=== PATIENT | male | born 1955 | race Caucasian/White ===

== ENCOUNTER 2017-11-11 08:41 | Emergency (ER) | payer OTHER ==
[~2017-11-11] VITALS: Ht 182.9 cm; Wt 104.3 kg
--- NOTE | ~2017-11-11 | EKG ---
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1955 Requested By: Marylu Brown Order Number: [id number] MD: Alden Payan Measurements Intervals [place] Rate: 72 P: -16 SC: 185 QRS: -26 QRSD: 145 T: -20 QT: 424 QTc: 465 Interpretive Statements Sinus rhythm Right bundle branch block Inferior infarct, age indeterminate No previous ECG available for comparison Electronically Signed On 11-11-2017 14:12:19 CDT by Alden Payan [email or web address] <ELECTRONICALLY SIGNED> By: Alden Paayn MD, [facility] 11/11/17 1412 0934 0934 Alden Payan MD, [facility] /EPI
[~2017-11-11 08:41] MED LIST: AMLODIPINE BESY10 MG PO; BENZTROPINE ME0.5 MG PO; CLONAZEPAM 0.50.5 M1 PO; DEPAKOTE 250MG250 M1 PO; FLOMAX0.4 MG PO; HALOPERIDOL 1 MG1 MG PO; HYDROCODONE-AP1 EAC6 PO; LACTULOSE10 GM/152 PO; LEVEMIR100 UNIT/1 SQ; NORCO 5-325 TA1 EACH PO; NOVOLOG100 UNIT/1; PEPCID20 MG PO; PERCOCET 5-3251 EACH PO; PROPRANOLOL 1010 MG PO; SEROQUEL 50 MG50 MG PO; WELLBUTRIN SR150 MG PO
[2017-11-11] MEDS ORDERED: SYNTHROID50 MCG PO (08:46)
[2017-11-11] MEDS ORDERED: RISPERIDONE0.5 MG PO (08:47)
[2017-11-11] MEDS ORDERED: ARTIFICIAL TEA1 EACH OPHTHALMIC (08:48)
[2017-11-11 09:10] LABS: ABSOLUTE NEUTROPHILS 3.1 thou/uL (1.4-8.2); BASOPHILS 0.5 % (0.0-2.0); EOSINOPHILS 4.1 % (0.0-3.0); HEMATOCRIT 33.1 % (42.0-52.0); HEMOGLOBIN 11.3 gm/dL (14.0-18.0); LYMPHOCYTES 17.5 % (24.0-44.0); MCH 30.7 pg (26.0-34.0); MCHC 34.2 g/dL (28.0-37.0); MCV 89.9 fL (80.0-100.0); MONOCYTES 8.9 % (1.0-8.0); PLATELET COUNT 136 thou/uL (150-400); RBC 3.68 mil/uL (4.50-6.00); WBC 4.5 thou/uL (4.0-11.0)
[2017-11-11 09:14] LABS: ANION GAP 7 mmol/L (7-16); BUN 29 mg/dL (7-18); CHLORIDE 108 mmol/L (98-107); CO2 30 mmol/L (21-32); CREATININE 1.8 mg/dL (0.7-1.3); GLUCOSE 145 mg/dL (74-106); SODIUM 145 mmol/L (136-145)
[2017-11-11 09:22] LABS: TROPONIN-I <0.06 ng/mL (<0.06)
[2017-11-11] MEDS ORDERED: DOXYCYCLINE 10100 MG PO (11:18)
[2017-11-11 13:52] VITALS: BP 140/78
== END 2017-11-11 13:53 | disposition home or self-care (01) ==
LOC: ER 08:41
PROVIDERS: Emergency Medicine
DX: J18.9 Pneumonia, unspecified organism (principal); N17.9 Acute kidney failure, unspecified; E11.9 Type 2 diabetes mellitus without complications; F32.9 Major depressive disorder, single episode, unspecified; F41.9 Anxiety disorder, unspecified; K21.9 Gastro-esophageal reflux disease without esophagitis; I10 Essential (primary) hypertension; E78.5 Hyperlipidemia, unspecified; Z79.4 Long term (current) use of insulin; Z88.2 Allergy status to sulfonamides